=== PATIENT | female | born 1955 | race Caucasian/White ===

== ENCOUNTER → 2016-10-16 | Outpatient (CLI) | payer BC ==
--- NOTE | 2016-10-17 09:36 | MM ---
Reason for exam: screening (asymptomatic). Last mammogram was performed 1 year and 7 months ago. History: Patient is postmenopausal. Took hormonal contraceptives for 2 years. Took estrogen for 2 months. Physical Findings: A clinical breast exam by your physician is recommended on an annual basis and results should be correlated with mammographic findings. MG Screening Mammo w CAD Bilateral CC and MLO view(s) were taken. Prior study comparison: March 21, 2015, bilateral MG screening mammo w CAD. March 03, 2014, bilateral MG screening mammo w CAD. The breast tissue is heterogeneously dense. This may lower the sensitivity of mammography. Finding: There are new indeterminate microcalcifications in the upper inner quadrant of the left breast. New finding since March 21, 2015 and March 03, 2014. ASSESSMENT: Incomplete: need additional imaging evaluation, BI-RAD 0 RECOMMENDATION: Special view mammogram of the left breast. [facility] will attempt to contact patient to return for supplemental views.
== END | disposition home or self-care (01) ==
LOC: RADMAMWWP 10:59
PROVIDERS: ATTEND Family Medicine
DX: Z12.31 Encounter for screening mammogram for malignant neoplasm of breast (principal)

== ENCOUNTER → 2016-10-20 | Outpatient (CLI) | payer BC ==
--- NOTE | 2016-10-20 10:38 | MM ---
Reason for exam: additional evaluation requested from abnormal screening. Last mammogram was performed less than 1 month ago. History: Patient is postmenopausal. Took hormonal contraceptives for 2 years. Took estrogen for 2 months. Physical Findings: Nurse did not find any significant physical abnormalities on exam. MG Work Up Mamm w CAD LT LM, CC with magnification, and LM with magnification view(s) were taken of the left breast. Prior study comparison: October 16, 2016, bilateral MG screening mammo w CAD. March 21, 2015, bilateral MG screening mammo w CAD. The breast tissue is heterogeneously dense. This may lower the sensitivity of mammography. Finding: There are intermediate concern, suspicious grouped/clustered, fine calcifications in the upper inner quadrant, middle position of the left breast. New finding since October 16, 2016 and March 21, 2015. These results were verbally communicated with the patient and result sheet given to the patient on 10/20/16. ASSESSMENT: Highly suggestive of malignancy, BI-RAD 5 RECOMMENDATION: Surgical consultation and stereotactic core biopsy of the left breast. Called Dr. Farias with mammographic findings and has scheduled an appointment for the patient for 10/23/16 at 2:[address] Hill. PRELIMINARY REPORT CALLED AND FAXED TO DR. HILL ON 10/20/16 AT 300/TP.
== END | disposition home or self-care (01) ==
LOC: RADMAMWWP 09:37
PROVIDERS: ATTEND Family Medicine
DX: R92.8 Other abnormal and inconclusive findings on diagnostic imaging of breast (principal)

== ENCOUNTER → 2016-11-03 | Day surgery (SDC) | payer BC ==
[~2016-11-03] MED LIST: ALPRAZolam 0.25 MG TAB ONE; BACITRACIN OINT 1 EACH PACKET TOPICAL ONE; LIDOCAINE 1% INJ 10MG/ML (20 ML MDV) ONE; SODIUM BICARB 4% 5 ML VIAL (0.48 MEQ/ML) ONE
--- NOTE | 2016-11-03 16:00 | MM ---
EXAMINATION TYPE: MG stereo VAD BX LT DATE OF EXAM: 11/03/2016 3:06 PM COMPARISON: NONE CLINICAL HISTORY: Microcalcifications TECHNIQUE: Stereotactic guided core biopsy of left breast. FINDINGS: The procedure of stereotactic guided core biopsy was explained to the patient. Benefits, alternatives, and risks were discussed. An informed consent was then obtained. [facility]. The procedure was performed by the undersigned. A vacuum assisted biopsy gun was used to obtain multiple core samples. The patient tolerated the procedure well without any immediate complication. The patient was kept in the radiology department for short stay after the procedure and then discharged home in stable condition. Targeted calcifications are identified in specimen mammogram. Post biopsy mammogram shows the clip to appear in satisfactory position relative to the targeted area of concern on the preprocedure images. IMPRESSION: SUCCESSFUL, UNCOMPLICATED STEREOTACTIC GUIDED CORE BIOPSY OF AREA OF CONCERN IN THE left BREAST, FULL PATHOLOGY RESULTS TO FOLLOW. Pathology Results: Benign BREAST, LEFT, STEREOTACTIC CORE BIOPSY: FIBROCYSTIC CHANGE (STROMAL FIBROSIS, CYST FORMATION, APOCRINE METAPLASIA AND ADENOSIS). SCATTERED CALCIFICATIONS IDENTIFIED, PENDING DEEPER SECTIONS AND SPECIMEN RADIOGRAPH TO CONFIRM ALL AREAS OF CALCIFICATION ARE IDENTIFIED. ADDENDUM REPORT BREAST, LEFT, STEREOTACTIC CORE BIOPSY: FIBROCYSTIC CHANGE (STROMAL FIBROSIS, CYST FORMATION, APOCRINE METAPLASIA, ADENOSIS, COLUMNAR CELL CHANGE AND DUCT HYPERPLASIA). CALCIFICATIONS IDENTIFIED. Recommendation Follow up mammogram of the left breast in 6 months. MTDD
== END ==
LOC: RADMAMWWP 13:17
PROVIDERS: ATTEND Surgery
DX: N60.12 Diffuse cystic mastopathy of left breast (principal); N60.82 Other benign mammary dysplasias of left breast; N60.22 Fibroadenosis of left breast; R92.1 Mammographic calcification found on diagnostic imaging of breast; R92.8 Other abnormal and inconclusive findings on diagnostic imaging of breast; R92.0 Mammographic microcalcification found on diagnostic imaging of breast
CPT/HCPCS: 88305; 19081; A4648; J2001

== ENCOUNTER 2018-05-06 14:02 | Inpatient (IN) | payer BC, OTHER ==
[2018-05-06 14:52] LABS: Basophils # (A) 0.1 k/uL (0-0.2); Basophils % (A) 1 %; Eosinophils # (A) 0.2 k/uL (0-0.7); Eosinophils % (A) 2 %; HCT 40.9 % (34.0-46.0); HGB 13.9 gm/dL (11.4-16.0); Lymphocytes # (A) 1.8 k/uL (1.0-4.8); Lymphocytes % (A) 18 %; MCV 85.3 fL (80.0-100.0); Monocytes # (A) 0.6 k/uL (0-1.0); Monocytes % (A) 6 %; Neutrophils % (A) 71 %; Platelet Count 292 k/uL (150-450); RDW 13.1 % (11.5-15.5); WBC 9.9 k/uL (3.8-10.6)
--- NOTE | 2018-05-06 14:56 | XR ---
EXAMINATION TYPE: XR chest 2V DATE OF EXAM: 05/06/2018 COMPARISON: 04/10/2015 HISTORY: Chest pain TECHNIQUE: Frontal and lateral views of the chest are obtained. FINDINGS: There is no focal air space opacity, pleural effusion, or pneumothorax seen. Minimal horiz ontally oriented platelike left basilar subsegmental atelectasis is noted. The cardiac silhouette siz e is within normal limits. The osseous structures are intact. Cholecystectomy clips are noted withi n the right upper quadrant. IMPRESSION: Minimal left basilar platelike subsegmental atelectasis. Otherwise no acute cardiopulmon teo process.
[2018-05-06 15:04] LABS: Calcium 9.6 mg/dL (8.4-10.2); Magnesium 2.1 mg/dL (1.6-2.3); Total Bilirubin 0.6 mg/dL (0.2-1.3); Total Protein 6.8 g/dL (6.3-8.2)
[2018-05-06 15:09] LABS: Creatine Kinase 35 U/L (30-135)
[2018-05-06 15:20] LABS: Partial Thromboplastin Time 24.9 sec (22.0-30.0); Prothrombin Time 10.2 sec (9.0-12.0)
[2018-05-06 15:22] LABS: Creatine Kinase MB 0.3 ng/mL (0.0-2.4); Troponin I <0.012 ng/mL (0.000-0.034)
[2018-05-06] MEDS ORDERED: ASPIRIN 81 MG PO STA (15:27)
[2018-05-06] MEDS ORDERED: NITROGLYCERIN SL TABS 0.4 MG TAB SUBLINGUAL STA (15:28)
--- NOTE | 2018-05-06 15:30 | ED ---
Chest Pain HPI - General Chief Complaint: Chest Pain Stated Complaint: Chest Pain Time Seen by Provider: 05/06/18 14:16 Source: patient, RN notes reviewed Mode of arrival: ambulatory Limitations: no limitations - History of Present Illness Initial Comments: This is a 8-year-old female with no prior history of heart disease states she had the onset about 2 AM of severe 8 and 9/10 retrosternal chest pain went to her back to her left shoulder. She states it was associated with shortness of breath at about 15 minutes 81 mg of aspirin some Aleve she has some relief after 45 minutes to see and resolve she also had associated frontal headache he had nausea with it. She states she has some soreness now 3/10 over her chest in the same area no cough no phlegm production no other symptoms at this time. Is a family history of heart disease no personal history. MD Complaint: chest pain - Related Data Home Medications Medication Instructions Recorded Confirmed Aspirin EC [Ecotrin Low Dose] 81 mg PO DAILY PRN 05/06/18 05/06/18 Gabapentin [Neurontin] 300 mg PO HS 05/06/18 05/06/18 Naproxen Sodium [Aleve] 220 mg PO DAILY PRN 05/06/18 05/06/18 Venlafaxine HCl [Effexor XR] 75 mg PO HS 05/06/18 05/06/18 Allergies Allergy/AdvReac Type Severity Reaction Status Date / Time Xnwjtfe-Cjq-Uqk Reductase Allergy Swelling Verified 05/06/18 14:25 Inhibitor Review of Systems ROS Statement: Those systems with pertinent positive or pertinent negative responses have been documented in the HPI. ROS Other: All systems not noted in ROS Statement are negative. EKG Findings - EKG Results: EKG: interpreted by MATTHEW, sinus rhythm (Sinus tachycardia rate of 101. Interval 150 QRS duration 80 QT since QTC 340/440 early repolarization no definite acute ST-T wave changes) Past Medical History Past Medical History: No Reported History History of Any Multi-Drug Resistant Organisms: None Reported Past Surgical History: Appendectomy, Cholecystectomy, Tubal Ligation Past Psychological History: No Psychological Hx Reported Smoking Status: Never smoker Past Alcohol Use History: None Reported Past Drug Use History: None Reported General Exam - General Exam Comments Initial Comments: This is a well-developed well-nourished awake alert oriented 3 female Limitations: no limitations General appearance: alert, in no apparent distress Head exam: Present: atraumatic, normocephalic, normal inspection Eye exam: Present: normal appearance, PERRL, EOMI. Absent: scleral icterus, conjunctival injection, periorbital swelling ENT exam: Present: normal exam, mucous membranes moist Neck exam: Present: normal inspection. Absent: tenderness, meningismus, lymphadenopathy Respiratory exam: Present: normal lung sounds bilaterally, chest wall tenderness (Mild times palpation of the anterior chest wall this does not seem to reproduce the patient's pain). Absent: respiratory distress, wheezes, rales , rhonchi, stridor Cardiovascular Exam: Present: regular rate, normal rhythm, normal heart sounds. Absent: systolic murmur, diastolic murmur, rubs, gallop, clicks GI/Abdominal exam: Present: soft, normal bowel sounds. Absent: distended, tenderness, guarding, rebound, rigid Extremities exam: Present: normal inspection, full ROM, normal capillary refill. Absent: tenderness, pedal edema, joint swelling, calf tenderness Back exam: Present: normal inspection Neurological exam: Present: alert, oriented X3, CN II-XII intact Psychiatric exam: Present: normal affect, normal mood Skin exam: Present: warm, dry, intact, normal color. Absent: rash Course Vital Signs 05/06/18 05/06/18 05/06/18 14:05 14:19 15:36 Temperature 98.0 F Pulse Rate 112 H 104 H Pulse Rate [ 99 Bilateral Sitting Radial] Respiratory 16 18 18 Rate Blood Pressure 103/61 122/60 O2 Sat by Pulse 97 99 Oximetry 05/06/18 16:15 Temperature Pulse Rate 101 H Pulse Rate [ Bilateral Sitting Radial] Respiratory 18 Rate Blood Pressure 110/69 O2 Sat by Pulse 97 Oximetry Chest Pain MDM - MDM MG reveals no acute findings I did discuss findings with the patient is unclear whether the nitroglycerin helped her pain she has has some reproducible pain but is different than what she experienced last evening. Patient will be admitted for evaluation by radiology. Disposition Clinical Impression: Chest pain, Unstable angina pectoris, Chest wall syndrome Disposition: ADMITTED IP TO THIS [facility] Condition: Stable Referrals: Celena Poole DO [Primary Care Provider] - 1-2 days
[2018-05-06] MEDS ORDERED: NITROGLYCERIN SL TABS 0.4 MG TAB SUBLINGUAL PRN (16:48)
[2018-05-06] MEDS ORDERED: HEPARIN SODIUM,PORCINE 5,000 UNIT/ML 1 ML VIAL IV ONE (16:48)
[2018-05-06] MEDS ORDERED: NAPROXEN 250 MG TAB PO PRN (16:51)
[2018-05-06] MEDS ORDERED: HEPARIN SOD,PORK IN 0.45% NACL 25,000 UNIT in 0.45% NACL 1 500ML.BAG IV SCH (17:00)
[2018-05-06] MEDS ORDERED: SODIUM CHLORIDE 0.9% 500 ML IV STA (17:27)
--- NOTE | 2018-05-06 17:34 | P.HPIM ---
History of Present Illness H&P Date: 05/06/18 Chief Complaint: chest pain Patient is a 62-year-old female with history of hot flashes due to menopausal type symptoms and vitamin D deficiency presented to the hospital with complaints of chest pain. In the ER she underwent an extensive evaluation. She was found to be tachycardic on arrival with a pulse of 112. Her vital signs were otherwise within normal limits. Initial laboratory analysis showed a normal troponin slightly elevated glucose of 131. EKG showed diffuse J-point elevation with worsening slow and mild ST segment depression. She is given a dose of nitro in the ER which relieved her chest pain. Patient seen and examined at bedside. She states that she woke up at 2 AM and was having severe retrosternal chest pain that radiated to her back and up into her neck. This is associated with shortness of breath. She also had palpitations. She denies any nausea, vomiting, diaphoresis, numbness or tingling, lightheadedness/dizziness, or syncopal episode. She took her blood pressure and it was 116/80 and her heart rate was 124. She took an aspirin and Aleve at approximately 45 minutes later was able to follow sleep. When she woke up this morning for work she felt sore across her chest back and underneath her rib cage. She said it felt like she had surgery. Then at approximately 10 AM she started having a migraine headache. She notes that her chest pain has been more mild today and all across her her chest rib cage and back. It is worse with deep inspiration. She currently does not have any nausea shortness of breath, numbness, tingling, or lightheadedness. Her chest pain is now very mild after the nitro which seemed to help. She denies any recent cough, cold, fever, flu, nausea, vomiting, diarrhea, or dysuria. She has not had any of these symptoms previously. She denies any recent sick contacts. She states that her cousin young of a heart attack and multiple uncles late in life due to myocardial infarction. She recently started gabapentin approximately one month ago for "hot flashes". Review of Systems Pertinent positives and negatives as discussed in HPI, a complete review of systems was performed and all other systems are negative. Past Medical History Additional Past Medical History / Comment(s): Hot flashes, Vitamin D deficiency History of Any Multi-Drug Resistant Organisms: None Reported Past Surgical History: Appendectomy, Cholecystectomy, Tubal Ligation Past Psychological History: No Psychological Hx Reported Smoking Status: Never smoker Past Alcohol Use History: None Reported Past Drug Use History: None Reported Additional History: Lives with , work as an university administrator - Past Family History cousin Additional Family Medical History / Comment(s): ID Medications and Allergies Home Medications Medication Instructions Recorded Confirmed Type Aspirin EC [Ecotrin Low Dose] 81 mg PO DAILY PRN 05/06/18 05/06/18 History Gabapentin [Neurontin] 300 mg PO HS 05/06/18 05/06/18 History Naproxen Sodium [Aleve] 220 mg PO DAILY PRN 05/06/18 05/06/18 History Venlafaxine HCl [Effexor XR] 75 mg PO HS 05/06/18 05/06/18 History Allergies Allergy/AdvReac Type Severity Reaction Status Date / Time Iyburzv-Dik-Pfy Reductase Allergy Swelling Verified 05/06/18 14:25 Inhibitor Physical Exam Osteopathic Statement: *. No significant issues noted on an osteopathic structural exam other than those noted in the History and Physical/Consult. Vitals: Vital Signs Temp Pulse Pulse Resp BP Pulse Ox 05/06/18 16:15 101 H 18 110/69 97 05/06/18 15:36 104 H 18 122/60 99 05/06/18 14:19 99 18 05/06/18 14:05 98.0 F 112 H 16 103/61 97 Intake and Output 05/06/18 05/06/18 05/06/18 06:59 14:59 22:59 Other: Weight 81.647 kg General: non toxic, no distress, appears at stated age, normal weight Derm: no unusual rashes/lesions no unusual ecchymoses, warm, dry Head: atraumatic, normocephalic, symmetric Eyes: EOMI, no lid lag, anicteric sclera, pupils equal round reactive to light ENT: Nose and ears atraumatic, no thrush, no pharyngeal erythema Neck: No thyromegaly, no cervical lymphadenopathy, trachea midline, supple Mouth: no lip lesion, mucus membranes moist Cardiovascular: S1S2 reg, no murmur, positive posterior tibial pulse bilateral, no edema, capillary refill less than 2 seconds, + pain to palpation of chest wall Lungs: CTA bilateral, no rhonchi, no rales , no accessory muscle use Abdominal: soft, nontender to palpation, no guarding, no appreciable organomegaly, normal bowel sounds Ext: no gross muscle atrophy, muscle strength 5 out of 5 in all 4 extremities grossly, no contractures, Neuro: CN II-XI grossly intact, light touch intact all 4 extremities, finger to nose within normal limits, Psych: Alert, oriented, appropriate affect Results CBC & Chem 7: 05/06/18 14:36 05/06/18 14:36 Labs: Abnormal Lab Results - Last 24 Hours (Table) 05/06/18 Range/Units 14:36 BUN 18 H (7-17) mg/dL Glucose 131 H (74-99) mg/dL Comments: EKG is reviewed by myself revealed sinus tachycardia at a rate of 101, normal access, normal intervals with a AZ of 5150, QRS 80, and AZ interval 440. She does have some J-point elevation in leads 2, 3, aVF, V5 and V6. She also has some AZ depression. Chest x-ray: report reviewed, image reviewed (Platelet atelectasis left base) Thrombosis Risk Factor Assmnt - DVT/VTE Prophylaxis DVT/VTE Prophylaxis: Low risk, early ambulation encouraged - Choose All That Apply Each Factor Represents 1 point: Age 41-60 years Thrombosis Risk Factor Assessment Total Risk Factor Score: 1 Thrombosis Risk Factor Assessment Level: Low Risk Assessment and Plan Assessment: Chest pain -Concern for possible pericarditis versus acute coronary syndrome versus pulmonary embolism -Serial troponin, aspirin -Telemetry -Echocardiogram in a.m. -Consult cardiology -Check d-dimer -When necessary nitro, [place] VItamine D Def - continue home replacement The patient is placed in observation with an anticipated less than 2 per night stay for evaluation of Observation Surrogate decision-maker: - Kenyon CODE STATUS:Full DVT prophylaxis: Early ambulation Anticipated discharge date: [address]: Home
[2018-05-06] MEDS ORDERED: HEPARIN SODIUM,PORCINE 5,000 UNIT/ML 1 ML VIAL IV PRN (19:25)
[2018-05-06] MEDS: NITROGLYCERIN OINT 1 INCH/GM PACKET TOPICAL SCH ×2 (19:51→23:01)
[2018-05-06] MEDS: GABAPENTIN 300 MG CAP PO SCH (19:53)
[2018-05-06] MEDS: VENLAFAXINE HCL ER 75 MG CAP PO SCH (19:53)
[2018-05-06 22:20] LABS: Creatine Kinase 30 U/L (30-135)
[2018-05-06 22:32] LABS: Creatine Kinase MB <0.2 ng/mL (0.0-2.4); Troponin I <0.012 ng/mL (0.000-0.034)
[2018-05-07 02:10] LABS: Hemoglobin A1C 5.3 % (4.0-6.0)
[2018-05-07] MEDS: NITROGLYCERIN OINT 1 INCH/GM PACKET TOPICAL SCH ×3 (03:47→19:25)
[2018-05-07 05:04] LABS: Creatine Kinase 28 U/L (30-135)
[2018-05-07 05:08] LABS: Cholesterol 181 mg/dL (<200); HDL Cholesterol 57 mg/dL (40-60); LDL Cholesterol,Calculated 107 mg/dL (0-99); Triglycerides 83 mg/dL (<150)
[2018-05-07 05:16] LABS: Creatine Kinase MB 0.2 ng/mL (0.0-2.4); Troponin I <0.012 ng/mL (0.000-0.034)
--- NOTE | 2018-05-07 07:36 | P.CRDCN ---
History of Present Illness Consult date: 05/07/18 Consult reason: chest pain Chief complaint: Chest pain History of present illness: This is a pleasant 62-year-old female patient with no significant past medical history of coronary artery disease or congestive heart failure or diabetes or hypertension or dyslipidemia who presented to the emergency room complaining of chest discomfort. The patient was in her usual state of health until early this morning when she woke up from sleep at 2:00 in the morning complaining of chest discomfort. She described her discomfort as a sharp kind of discomfort in the mid of the chest and the patient states clearly that it's worse when she takes a deep breath. The chest discomfort wasn't associated with shortness of breath. No sweating. No dizziness or lightheadedness. No nausea or vomiting. And no syncope. When she presented to the emergency room she was slightly tachycardic and the patient continues to be tachycardic with heart rate in the 80s at this point. 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 Currently she is chest pain-free. The EKG showed sinus rhythm with diffuse J-point elevation except for ST segment depression in aVR. I do feel that the EKG is consistent with pericarditis and the clinical scenario and characteristic of the chest discomfort seems to be consistent with pericarditis as well. I could not hear any pericardial rub. The patient is not aware of any history of upper respiratory infection recently and also she denies having any fever or chills or cough as well. The chest x-ray did not show any acute abnormalities. The patient underwent 3 sets of cardiac enzymes came in to be unremarkable. The CBC and BNP came in to be also within normal limits. Past Medical History Past Medical History: Cancer Additional Past Medical History / Comment(s): Hot flashes, Vitamin D deficiency "pre cancerous cells/cervix pt stated they burned them out, skin cancer(removed) History of Any Multi-Drug Resistant Organisms: None Reported Past Surgical History: Appendectomy, Cholecystectomy, Tubal Ligation Additional Past Surgical History / Comment(s): "pre cancerous cells in cervix- pt stated they burned them out" Past Anesthesia/Blood Transfusion Reactions: Motion Sickness, Postoperative Nausea & Vomiting (PONV) Smoking Status: Never smoker - Past Family History Mother Family Medical History: Diabetes Mellitus Additional Family Medical History / Comment(s): obesity, depression Father History Unknown: Yes Additional Family Medical History / Comment(s): "i did'nt know my dad" cousin Additional Family Medical History / Comment(s): MD Medications and Allergies Home Medications Medication Instructions Recorded Confirmed Type Aspirin EC [Ecotrin Low Dose] 81 mg PO DAILY PRN 05/06/18 05/06/18 History Gabapentin [Neurontin] 300 mg PO HS 05/06/18 05/06/18 History Naproxen Sodium [Aleve] 220 mg PO DAILY PRN 05/06/18 05/06/18 History Venlafaxine HCl [Effexor XR] 75 mg PO HS 05/06/18 05/06/18 History Allergies Allergy/AdvReac Type Severity Reaction Status Date / Time Npvwxcu-Ame-Ikx Reductase Allergy Swelling Verified 05/06/18 14:25 Inhibitor Physical Exam Vitals: Vital Signs Temp Pulse Pulse Pulse Resp BP BP 05/07/18 03:45 18 05/07/18 03:44 97.6 F 84 18 117/73 05/06/18 23:32 18 05/06/18 23:31 98.2 F 94 18 104/65 05/06/18 19:34 16 05/06/18 18:43 05/06/18 18:30 98.8 F 107 H 16 122/76 05/06/18 17:47 98.0 F 100 18 115/60 05/06/18 16:15 101 H 18 110/69 05/06/18 15:36 104 H 18 122/60 05/06/18 14:19 99 18 05/06/18 14:05 98.0 F 112 H 16 103/61 Pulse Ox 05/07/18 03:45 05/07/18 03:44 98 05/06/18 23:32 05/06/18 23:31 94 L 05/06/18 19:34 05/06/18 18:43 98 05/06/18 18:30 96 05/06/18 17:47 98 05/06/18 16:15 97 05/06/18 15:36 99 05/06/18 14:19 05/06/18 14:05 97 Intake and Output 05/06/18 05/07/18 05/07/18 22:59 06:59 14:59 Intake Total 301.868 280 Balance 301.868 280 Intake: IV 280 Heparin Sod,Pork in 0.45% 140 NaCl 25,000 unit In 0.45 % NaCl 1 500ml.bag @ 12 UNITS/KG/HR 19.59 mls/hr IV .Q24H DAREN Rx#: [id number] Sodium Chloride 0.9% 500 140 ml @ 20 mls/hr IV .Q24H STA Rx#:[id number] Intake, IV Titration 101.868 Amount Heparin Sod,Pork in 0.45% 101.868 NaCl 25,000 unit In 0.45 % NaCl 1 500ml.bag @ 12 UNITS/KG/HR 19.59 mls/hr IV .Q24H DAREN Rx#: [id number] Oral 200 Other: Voiding Method Toilet Toilet # Voids 1 2 Weight 81.3 kg - Constitutional General appearance: no acute distress - Respiratory Respiratory: bilateral: CTA - Cardiovascular Rhythm: regular Heart sounds: normal: S1, S2 Results 05/06/18 14:36 05/06/18 14:36 Cardiac Enzymes 05/06/18 05/06/18 05/06/18 Range/Units 14:36 14:36 21:47 AST 31 (14-36) U/L CK-MB (CK-2) 0.3 <0.2 (0.0-2.4) ng/mL Troponin I <0.012 <0.012 (0.000-0.034) ng/mL 05/07/18 Range/Units 04:05 AST (14-36) U/L CK-MB (CK-2) 0.2 (0.0-2.4) ng/mL Troponin I <0.012 (0.000-0.034) ng/mL Coagulation 05/06/18 05/06/18 05/07/18 Range/Units 14:36 21:47 04:05 PT 10.2 (9.0-12.0) sec APTT 24.9 46.0 H 58.0 H (22.0-30.0) sec Lipids 05/07/18 Range/Units 04:05 Triglycerides 83 (<150) mg/dL Cholesterol 181 (<200) mg/dL HDL Cholesterol 57 (40-60) mg/dL CBC 05/06/18 Range/Units 14:36 WBC 9.9 (3.8-10.6) k/uL RBC 4.80 (3.80-5.40) m/uL Hgb 13.9 (11.4-16.0) gm/dL Hct 40.9 (34.0-46.0) % Plt Count 292 (150-450) k/uL Comprehensive Metabolic Panel 05/06/18 Range/Units 14:36 Sodium 140 (137-145) mmol/L Potassium 4.0 (3.5-5.1) mmol/L Chloride 105 (98-107) mmol/L Carbon Dioxide 28 (22-30) mmol/L BUN 18 H (7-17) mg/dL Creatinine 0.84 (0.52-1.04) mg/dL Glucose 131 H (74-99) mg/dL Calcium 9.6 (8.4-10.2) mg/dL AST 31 (14-36) U/L ALT 45 (9-52) U/L Alkaline Phosphatase 63 (38-126) U/L Total Protein 6.8 (6.3-8.2) g/dL Albumin 4.0 (3.5-5.0) g/dL Current Medications Generic Name Dose Route Start Last Admin Trade Name Freq PRN Reason Stop Dose Admin Aspirin 325 mg 05/07/18 09:00 Aspirin PO DAILY DAREN Gabapentin 300 mg 05/06/18 21:00 05/06/18 19:53 Neurontin PO 300 mg HS DAREN Administration Heparin Sodium (Porcine) 0 unit 05/06/18 19:25 05/06/18 22:48 Heparin IV 2,025 unit PER PROTOCOL PRN Administration Low PTT Protocol Heparin Sodium/Sodium Chloride 500 mls @ 19.59 mls/hr 05/06/18 17:00 22:47 25,000 unit/ Sodium Chloride IV 14 units/kg/hr .Q24H DAREN 22.86 mls/hr Titration Protocol 12 UNITS/KG/HR Sodium Chloride 500 mls @ 20 mls/hr 05/06/18 17:27 05/06/18 17:33 Saline 0.9% IV 05/07/18 17:26 20 mls/hr .Q24H STA Administration Naproxen 250 mg 05/06/18 16:51 05/06/18 18:54 Naprosyn PO 250 mg DAILY PRN Administration Mild Pain Nitroglycerin 1 inch 05/06/18 18:00 05/07/18 03:47 Nitro-Bid Oint TOPICAL Not Given Q6HR DAREN Nitroglycerin 0.4 mg 05/06/18 16:48 Nitrostat SUBLINGUAL Q5M PRN Chest Pain Venlafaxine HCl 75 mg 05/06/18 21:00 05/06/18 19:53 Effexor Xr PO 75 mg HS DAREN Administration Intake and Output 05/06/18 05/07/18 05/07/18 22:59 06:59 14:59 Intake Total 301.868 280 Balance 301.868 280 Intake: IV 280 Heparin Sod,Pork in 0.45% 140 NaCl 25,000 unit In 0.45 % NaCl 1 500ml.bag @ 12 UNITS/KG/HR 19.59 mls/hr IV .Q24H DAREN Rx#: [id number] Sodium Chloride 0.9% 500 140 ml @ 20 mls/hr IV .Q24H STA Rx#:[id number] Intake, IV Titration 101.868 Amount Heparin Sod,Pork in 0.45% 101.868 NaCl 25,000 unit In 0.45 % NaCl 1 500ml.bag @ 12 UNITS/KG/HR 19.59 mls/hr IV .Q24H DAREN Rx#: [id number] Oral 200 Other: Voiding Method Toilet Toilet # Voids 1 2 Weight 81.3 kg 05/06/18 14:36 05/06/18 14:36 Assessment and Plan Assessment: Assessment #1 atypical/pleuritic chest discomfort. Currently the patient is chest pain- free Plan #1 the clinical picture is likely to be consistent with acute pericarditis #2 the patient was ruled out for acute coronary event #3 I will follow-up on the echocardiogram to assess for any pericardial effusion #4 obtain a sed rate for better clarification #5 DC the heparin at this point #6 I will start the patient also on colchicine #7 she is already taking nonsteroid anti-inflammatory at home #8 follow-up with the patient and I did recommend keeping the patient for another 24 hours. Thank you for allowing us participate in her care and we'll continue following up with the patient
[2018-05-07] MEDS: COLCHICINE 0.6 MG EACH PO SCH ×2 (08:57→19:41)
--- NOTE | 2018-05-07 10:42 | ECHOF ---
Referral Reason:chest pain MEASUREMENTS -------- HEIGHT: 165.1 cm WEIGHT: 81.2 kg BP: 117/73 RVIDd: 2.9 cm (< 3.3) IVSd: 1.2 cm (0.6 - 1.1) LVIDd: 4.4 cm (3.9 - 5.3) LVPWd: 1.1 cm (0.6 - 1.1) IVSs: 1.8 cm LVIDs: 2.3 cm LVPWs: 2.0 cm LAESV Index (A-L): 21.36 ml/m Ao Diam: 2.7 cm (2.0 - 3.7) AV Cusp: 1.4 cm (1.5 - 2.6) LA Diam: 3.2 cm (2.7 - 3.8) MV EXCURSION: 13.536 mm (> 18.000) MV EF SLOPE: 93 mm/s (70 - 150) EPSS: 0.9 cm MV E Solo: 0.92 m/s MV DecT: 156 ms MV A Solo: 0.87 m/s MV E/A Ratio: 1.05 RAP: 5.00 mmHg RVSP: 9.94 mmHg FINDINGS -------- Sinus rhythm. This was a technically good study. The left ventricular size is normal. There is mild concentric left ventricular hypertrophy. Overa ll left ventricular systolic function is normal with, an EF between 55 - 60 %. The right ventricle is normal in size and function. The left atrial size is normal. The right atrium is normal in size. The aortic valve is trileaflet, and appears structurally normal. No aortic stenosis or regurgitation. There is trace mitral regurgitation. Trace tricuspid regurgitation present. The right ventricular systolic pressure, as measured by Dopp ler, is 9.94mmHg. Pulmonic valve appears structurally normal. The aortic root size is normal. Normal inferior vena cava with normal inspiratory collapse consistent with estimated right atrial pre ssure of 5 mmHg. The pericardium is normal. CONCLUSIONS -------- 1. Sinus rhythm. 2. This was a technically good study. 3. The left ventricular size is normal. 4. There is mild concentric left ventricular hypertrophy. 5. Overall left ventricular systolic function is normal with, an EF between 55 - 60 %. 6. The right ventricle is normal in size and function. 7. The left atrial size is normal. 8. The right atrium is normal in size. 9. The aortic valve is trileaflet, and appears structurally normal. No aortic stenosis or regurgitati on. 10. There is trace mitral regurgitation. 11. Trace tricuspid regurgitation present. 12. The right ventricular systolic pressure, as measured by Doppler, is 9.94mmHg. 13. Pulmonic valve appears structurally normal. 14. The aortic root size is normal. 15. Normal inferior vena cava with normal inspiratory collapse consistent with estimated right atrial pressure of 5 mmHg. 16. The pericardium is normal. SUSTAINABLE COMMUNITIES DESIGNER: Lindsey Ordaz RDCS
[2018-05-07] MEDS: ASPIRIN 325 MG TAB PO SCH (12:24)
[2018-05-07] MEDS: VENLAFAXINE HCL ER 75 MG CAP PO SCH (19:41)
[2018-05-07] MEDS: GABAPENTIN 300 MG CAP PO SCH (19:41)
--- NOTE | 2018-05-07 20:37 | P.PN ---
Subjective Progress Note Date: 05/07/18 (Delayed charting seen at 1000) Principal diagnosis: chest pain Patient is a 62-year-old female with history of hot flashes due to menopausal type symptoms and vitamin D deficiency presented to the hospital with complaints of chest pain. In the ER she underwent an extensive evaluation. She was found to be tachycardic on arrival with a pulse of 112. Her vital signs were otherwise within normal limits. Initial laboratory analysis showed a normal troponin slightly elevated glucose of 131. EKG showed diffuse J-point elevation with worsening slow and mild ST segment depression. She is given a dose of nitro in the ER which relieved her chest pain. She was admitted for observation. Her troponins remained negative and EKG was unchanged. She was seen by cardiology culture likely had acute pericarditis. She was started on colchicine in the recommended monitoring for an additional 24 hours. Patient seen and examined at bedside. She has no complaints currently. She still having some chest soreness is much better than yesterday. No shortness of breath. No nausea. No vomiting. Objective - Vital Signs Vital signs: Vital Signs Temp 98.2 F 05/07/18 20:00 Pulse 89 05/07/18 20:00 Resp 16 05/07/18 20:00 BP 122/68 05/07/18 20:00 Pulse Ox 98 05/07/18 20:00 Intake & Output 05/07/18 05/07/18 05/08/18 06:59 18:59 06:59 Intake Total 381.868 318 Balance 381.868 318 Intake: IV 280 Heparin Sod,Pork in 0.45% 140 NaCl 25,000 unit In 0.45 % NaCl 1 500ml.bag @ 12 UNITS/KG/HR 19.59 mls/hr IV .Q24H DAREN Rx#: [id number] Sodium Chloride 0.9% 500 140 ml @ 20 mls/hr IV .Q24H STA Rx#:[id number] Intake, IV Titration 101.868 Amount Heparin Sod,Pork in 0.45% 101.868 NaCl 25,000 unit In 0.45 % NaCl 1 500ml.bag @ 12 UNITS/KG/HR 19.59 mls/hr IV .Q24H DAREN Rx#: [id number] Oral 318 Other: Voiding Method Toilet Toilet # Voids 2 1 - Exam General: non toxic, no distress, appears at stated age Derm: warm, dry Head: atraumatic, normocephalic, symmetric Eyes: EOMI, no lid lag, anicteric sclera Mouth: no lip lesion, mucus membranes moist Cardiovascular: S1S2 reg, no murmur, positive posterior tibial pulse bilateral, + pain over palpation of chest wall Lungs: CTA bilateral, no rhonchi, no rales , no accessory muscle use Abdominal: soft, nontender to palpation, no guarding, no appreciable organomegaly Ext: no gross muscle atrophy, no edema, no contractures Neuro: CN II-XI grossly intact, no focal neuro deficits Psych: Alert, oriented, appropriate affect - Labs CBC & Chem 7: 05/06/18 14:36 05/06/18 14:36 Labs: Abnormal Lab Results - Last 24 Hours (Table) 05/06/18 05/07/18 05/07/18 Range/Units 21:47 04:05 04:05 ESR (0-20) mm/hr APTT 46.0 H (22.0-30.0) sec Total Creatine Kinase 28 L (30-135) U/L LDL Cholesterol, Calc 107 H (0-99) mg/dL 05/07/18 05/07/18 Range/Units 04:05 04:05 ESR 36 H (0-20) mm/hr APTT 58.0 H (22.0-30.0) sec Total Creatine Kinase (30-135) U/L LDL Cholesterol, Calc (0-99) mg/dL Assessment and Plan Assessment: Acute pericarditis -Concern for possible pericarditis versus acute coronary syndrome versus pulmonary embolism -Serial troponins negative -Telemetry -Echocardiogram unremarkable -Cardiology recommendations appreciated: Cultures seen - ESR slightly elevated Vitamin D Def - continue home replacement The patient is placed in observation with an anticipated less than 2 per night stay for evaluation of Observation Surrogate decision-maker: - Kenyon CODE STATUS:Full DVT prophylaxis: Early ambulation Anticipated discharge date: [address]: Home
[2018-05-08 08:34] VITALS: RESP 16
[2018-05-08] MEDS: COLCHICINE 0.6 MG EACH PO SCH (08:43)
[2018-05-08] MEDS: ASPIRIN 325 MG TAB PO SCH (08:43)
--- NOTE | 2018-05-08 11:26 | P.DS ---
Providers Date of admission: 05/08/18 10:13 Expected date of discharge: 05/08/18 Attending physician: Fabián Ye MD Consults: 05/06/18 16:48 Consult Physician Urgent Consulting Provider: Carl Price Consult Reason/Comments: Chest pain Do you want consulting provider notified?: Yes Primary care physician: Celena Poole Hospital Course: Discharge Diagnosis: Acute pericarditis Vitamin D deficiency Hospital Course: Patient is a 62-year-old female with history of hot flashes due to menopausal type symptoms and vitamin D deficiency presented to the hospital with complaints of chest pain. In the ER she underwent an extensive evaluation. She was found to be tachycardic on arrival with a pulse of 112. Her vital signs were otherwise within normal limits. Initial laboratory analysis showed a normal troponin slightly elevated glucose of 131. EKG showed diffuse J-point elevation with worsening slow and mild ST segment depression. She is given a dose of nitro in the ER which relieved her chest pain. She was admitted for observation. Her troponins remained negative and EKG was unchanged. She was seen by cardiology culture likely had acute pericarditis. She was started on colchicine in the recommended monitoring for an additional 24 hours. She was up and ambulating in the hallways. On the morning of 05/08 her chest pain was most likely resolved. She is only having chest pain with deep inspiration. No shortness of breath. She is determined stable for discharge home. She'll complete a course of Colchicine and ibuprofen. She will also be placed on a PPI while receiving NSAID therapy. She'll follow up with Dr. Trevizo in 2-[address] Poole her primary care physician in one week. Patient seen and examined at bedside. Only having chest pain with deep inspiration. Pain is the side of the left chest. No shortness of breath. No chest pain at rest. No nausea or vomiting. Vital signs reviewed and stable. General: non toxic, no distress, appears at stated age Derm: warm, dry Head: atraumatic, normocephalic, symmetric Eyes: EOMI, no lid lag, anicteric sclera Mouth: no lip lesion, mucus membranes moist Cardiovascular: S1S2 reg, no murmur, positive posterior tibial pulse bilateral, + pain to palpation of her left chest wall Lungs: CTA bilateral, no rhonchi, no rales , no accessory muscle use Abdominal: soft, nontender to palpation, no guarding, no appreciable organomegaly Ext: no gross muscle atrophy, no edema, no contractures Neuro: CN II-XI grossly intact, no focal neuro deficits Psych: Alert, oriented, appropriate affect A total of 20 minutes of time were spent preparing this complex discharge summary . Pertinent Studies: Echocardiogram-ejection fraction 55-60%, no pericardial effusion, pericardium appeared normal Patient Condition at Discharge: Stable Plan - Discharge Summary Discharge Rx Participant: Yes New Discharge Prescriptions: New Colchicine [Colcrys] 0.6 mg PO BID #60 each Ibuprofen 600 mg PO TID #90 tablet Pantoprazole [Protonix] 40 mg PO DAILY #30 tablet. Continue Venlafaxine HCl [Effexor XR] 75 mg PO HS Gabapentin [Neurontin] 300 mg PO HS Discontinued Naproxen Sodium [Aleve] 220 mg PO DAILY PRN PRN Reason: Pain Aspirin EC [Ecotrin Low Dose] 81 mg PO DAILY PRN PRN Reason: Pain Discharge Medication List Gabapentin [Neurontin] 300 mg PO HS 05/06/18 [History] Venlafaxine HCl [Effexor XR] 75 mg PO HS 05/06/18 [History] Colchicine [Colcrys] 0.6 mg PO BID #60 each 05/08/18 [Rx] Ibuprofen 600 mg PO TID #90 tablet 05/08/18 [Rx] Pantoprazole [Protonix] 40 mg PO DAILY #30 tablet. 05/08/18 [Rx] Follow up Appointment(s)/Referral(s): Eduardo Trevizo MD [STAFF PHYSICIAN] - 1 Week Celena Poole DO [Primary Care Provider] - 2 Weeks Activity/Diet/Wound Care/Special Instructions: heart healthy diet activity as tolerated Typical duration of ibuprofen is 1-2 weeks depending clinical course. Discharge Disposition: HOME SELF-CARE
--- NOTE | 2018-05-08 12:31 | PN ---
PROGRESS NOTE This patient was admitted with symptoms of pleuritic chest pain. EKG is suggestive of acute viral pericarditis. Patient has been treated with colchicine and ibuprofen. Patient's Sed rate was elevated. Patient is feeling well. She is not having any chest discomfort. First and second heart sounds are normal. Lungs are clear to auscultation and percussion. Patient can be discharged home on ibuprofen and colchicine and she is advised to follow up with Dr. Trevizo. TANI / KELLY: [id number] /
[2018-05-08 13:06] VITALS: BP 128/78; PULSE 88; TEMP 98
== END 2018-05-08 13:09 | disposition home or self-care (01) | DRG 316 ==
LOC: EC 14:02 → 3OBS 16:48 → OBSVTOIN 05-08 10:13
PROVIDERS: ADMIT Hospitalist; ATTEND Hospitalist
DX: I30.9 Acute pericarditis, unspecified (principal); E55.9 Vitamin D deficiency, unspecified; N95.1 Menopausal and female climacteric states; G43.909 Migraine, unspecified, not intractable, without status migrainosus; Z79.1 Long term (current) use of non-steroidal anti-inflammatories (NSAID); Z79.82 Long term (current) use of aspirin; Z79.899 Other long term (current) drug therapy; Z90.49 Acquired absence of other specified parts of digestive tract; Z98.51 Tubal ligation status; Z88.8 Allergy status to other drugs, medicaments and biological substances; Z85.828 Personal history of other malignant neoplasm of skin; Z81.8 Family history of other mental and behavioral disorders; Z83.3 Family history of diabetes mellitus; Z82.49 Family history of ischemic heart disease and other diseases of the circulatory system
CPT/HCPCS: 36415; 71046; 80053; 80061; 82550; 82553; 83036; 83735; 84484; 85025; 85379; 85610; 85652; 85730; 93005; 93306; 96374; 99285

== ENCOUNTER → 2018-06-11 | Outpatient (CLI) | payer OTHER ==
--- NOTE | 2018-06-14 08:41 | MM ---
Reason for exam: additional evaluation requested from prior study. Last mammogram was performed 1 year and 8 months ago. History: Patient is postmenopausal. Benign MG stereo VAD BX LT of the left breast, November 03, 2016. Took hormonal contraceptives for 2 years. Took estrogen for 2 months. Physical Findings: Nurse did not find any significant physical abnormalities on exam. MG Diagnostic Mammo w CAD NIESHA Bilateral CC and MLO view(s) were taken. Prior study comparison: October 20, 2016, left breast MG work up mamm w CAD LT. October 16, 2016, bilateral MG screening mammo w CAD. The breast tissue is heterogeneously dense. This may lower the sensitivity of mammography. There are benign appearing round calcifications in the left breast. Previous mammotome biopsy in the left breast. There is no discrete abnormality. These results were verbally communicated with the patient and result sheet given to the patient on 06/11/18. ASSESSMENT: Benign, BI-RAD 2 RECOMMENDATION: Routine screening mammogram of both breasts in 1 year.
== END ==
LOC: RADMAMWWP 15:33
PROVIDERS: ATTEND Internal Medicine
DX: R92.8 Other abnormal and inconclusive findings on diagnostic imaging of breast (principal)
CPT/HCPCS: 77066

== ENCOUNTER 2018-10-18 11:59 | Emergency (ER) | payer OTHER ==
[2018-10-18 12:10] VITALS: BP 138/83; PULSE 84; RESP 18; TEMP 98.5
--- NOTE | 2018-10-18 12:43 | ED ---
General Adult HPI - General Chief complaint: Fall Stated complaint: fall, wants MRI Time Seen by Provider: 10/18/18 12:14 Source: patient, RN notes reviewed Mode of arrival: ambulatory Limitations: no limitations - History of Present Illness Initial comments: Patient's a 62-year-old female presenting to the emergency room today with a chief complaint of a head injury that occurred 2 days ago. She does admit that she was in her house when she slipped and went down some steps. She states she did lose consciousness. She states that when she woke up she went to the hospital. She states she did have imaging obtained. She states that he was negative and she was told to follow up over the next 2 days. She states that she couldn't get into her family doctor's office today is closed. she states she decided to come here to the emergency room. She states that she's had minimal headache over the last 2 days that she states is improving. She denies any other complaints with this headache. Patient denies any recent fever, chills , shortness of breath, chest pain, back pain, abdominal pain, nausea or vomiting , numbness or tingling, visual changes, or any other complaints. - Related Data Home Medications Medication Instructions Recorded Confirmed Gabapentin [Neurontin] 300 mg PO HS 05/06/18 05/06/18 Venlafaxine HCl [Effexor XR] 75 mg PO HS 05/06/18 05/06/18 Previous Rx's Medication Instructions Recorded Colchicine [Colcrys] 0.6 mg PO BID #60 each 05/08/18 Ibuprofen 600 mg PO TID #90 tablet 05/08/18 Pantoprazole [Protonix] 40 mg PO DAILY #30 tablet. 05/08/18 Allergies Allergy/AdvReac Type Severity Reaction Status Date / Time Rpwvptx-Mro-Pxx Reductase Allergy Swelling Verified 10/18/18 12:10 Inhibitor Review of Systems ROS Statement: Those systems with pertinent positive or pertinent negative responses have been documented in the HPI. ROS Other: All systems not noted in ROS Statement are negative. Past Medical History Past Medical History: Cancer Additional Past Medical History / Comment(s): Hot flashes, Vitamin D deficiency "pre cancerous cells/cervix pt stated they burned them out, skin cancer(removed) History of Any Multi-Drug Resistant Organisms: None Reported Past Surgical History: Appendectomy, Cholecystectomy, Tubal Ligation Additional Past Surgical History / Comment(s): "pre cancerous cells in cervix- pt stated they burned them out" Past Anesthesia/Blood Transfusion Reactions: Motion Sickness, Postoperative Nausea & Vomiting (PONV) Past Psychological History: No Psychological Hx Reported Smoking Status: Never smoker - Past Family History Mother Family Medical History: Diabetes Mellitus Additional Family Medical History / Comment(s): obesity, depression Father History Unknown: Yes Additional Family Medical History / Comment(s): "i did'nt know my dad" cousin Additional Family Medical History / Comment(s): LA General Exam - General Exam Comments Initial Comments: General: The patient is awake and alert, in no distress, and does not appear acutely ill. Eye: Pupils are equal, round and reactive to light, extra-ocular movements are intact. No nystagmus. There is normal conjunctiva bilaterally. No signs of icterus. Ears, nose, mouth and throat: There are moist mucous membranes and no oral lesions. Neck: The neck is supple, there is no tenderness or JVD. Cardiovascular: There is a regular rate and rhythm. No murmur, rub or gallop is appreciated. Respiratory: Lungs are clear to auscultation, respirations are non-labored, breath sounds are equal. No wheezes, stridor, rales, or rhonchi. Musculoskeletal: Normal ROM, no tenderness. Strength 5/5. Sensation intact. No tenderness to the cervical, thoracic or lumbar spine. No step-off or deformity. Neurological: A&O x 3. CN II-XII intact, There are no obvious motor or sensory deficits. Coordination appears grossly intact. Speech is normal. Normal gait. Skin: Skin is warm and dry and no rashes or lesions are noted. Psychiatric: Cooperative, appropriate mood & affect, normal judgment. Limitations: no limitations Course Vital Signs 10/18/18 12:06 Temperature 98.5 F Pulse Rate 84 Respiratory 18 Rate Blood Pressure 138/83 O2 Sat by Pulse 97 Oximetry Medical Decision Making - Medical Decision Making 62-year-old female presenting to the emergency room today with chief complaint of fall occurred 2 days ago. Patient did have copy of her CT scan of her head and neck from 2 days ago which was negative no acute abnormality. Was discussed with patient about sinus symptoms of concussion in detail. Patient states minimal headache today and has improved over the last 2 days. She denies any other complaints or symptoms. Patient has normal neurological exam here in the emergency room. Patient's vitals are stable. Doing well. Options of CT were discussed with patient. Risks versus benefit were discussed. At this time patient feels comfortable being discharged home to follow-up the family doctor over the next 2 days. She is advised that she should return to emergency room if any symptoms increase or worsen. She states understanding and is in agreement. Disposition Clinical Impression: Concussion Disposition: HOME SELF-CARE Condition: Good Instructions (If sedation given, give patient instructions): Concussion (ED) Additional Instructions: Please follow-up with family doctor in the next 2 days. Please return to emergency room if the symptoms increase or worsen or for any other concerns. Is patient prescribed a controlled substance at d/c from ED?: No Referrals: Celena Poole DO [Primary Care Provider] - 1-2 days Time of Disposition: 12:41
== END 2018-10-18 12:52 | disposition home or self-care (01) ==
LOC: EC 11:59
DX: S06.0X0A Concussion without loss of consciousness, initial encounter (principal); Z85.828 Personal history of other malignant neoplasm of skin; Z79.899 Other long term (current) drug therapy; Z88.8 Allergy status to other drugs, medicaments and biological substances; W10.9XXA Fall (on) (from) unspecified stairs and steps, initial encounter; Y92.009 Unspecified place in unspecified non-institutional (private) residence as the place of occurrence of the external cause
CPT/HCPCS: 99283

== ENCOUNTER → 2018-11-26 | Outpatient (CLI) | payer OTHER ==
--- NOTE | 2018-11-26 17:16 | MR ---
EXAMINATION TYPE: MR brain wo/w con DATE OF EXAM: 11/26/2018 COMPARISON: None HISTORY: head injury, numbness in feet, pain in neck CONTRAST: Performed utilizing 8.5 mL intravenous Gadavist gadolinium contrast. TECHNIQUE: Multiplanar, multiecho imaging on a 3.0 Linda magnet is performed through the brain. Stud y is performed within 24 hours of arrival to the hospital. The craniovertebral junction is normal. The pituitary is normal. Diffusion-weighted imaging is performed. No abnormal hyperintensity is present to suggest an acute i ntracranial infarct or acute ischemic change. Signal through the brain is normal. On T2-weighted sequences there is some ill-defined hypodensity to the left of the basilar artery with in the cerebellar pontine angle pontine space. This region appears hyperintense on T2 and FLAIR image s this has mixed signal on the axial T2 star trauma imaging. No enhancement is evident. Consider the possibility of hemorrhage. Additional evaluation with CT is recommended. Preliminary Report was called and case discussed with the referring physician Dr. Poole by Dr. Adeline lara by telephone [phone] is unavailable for direct comparison at this time. Report is emilia t of petechial hemorrhages along the parietal vertex on a [address] No comment of prepons hem orrhage. The images were able to be viewed from the computer disc images are reviewed and compared to the curr ent MRI. Suspicious signal abnormality at the vertex to correspond to the previous suspected subarach noid hemorrhages is not evident. Ventricles and sulci are appropriate for the patient age. There is an air-fluid level within the left maxillary sinus. Correlate for acute left maxillary sinus . Mild mucosal thickenings with ethmoid air cells. Mastoid air cells are clear. IMPRESSIONS: 1. Abnormal signal within the CSF space adjacent to the basilar artery and within the anterior left c erebellar pontine angle. Consider subacute to old hemorrhage. CT could be performed for additional ev aluation. 2. No suspicious corresponding abnormality at the vertex for prior suspected subarachnoid hemorrhage. 3. Correlate for acute left maxillary sinusitis. 4. Pre and postcontrast MRI brain otherwise appears unremarkable.
== END | disposition home or self-care (01) ==
LOC: RADMRIMAIN 07:30
PROVIDERS: ATTEND Internal Medicine
DX: R93.0 Abnormal findings on diagnostic imaging of skull and head, not elsewhere classified (principal); S06.0X0S Concussion without loss of consciousness, sequela
CPT/HCPCS: 70553; A9585

== ENCOUNTER → 2019-05-26 | Outpatient (CLI) | payer OTHER ==
--- NOTE | 2019-05-26 12:17 | ECHOS ---
STRESS ECHOCARDIOGRAM DATE OF SERVICE: 05/26/2019 INDICATIONS: Shortness of breath. MEDICATIONS: BASELINE HEART RATE: 75 BASELINE BLOOD PRESSURE: 100/56 MAXIMUM HEART RATE: 145 MAXIMUM BLOOD PRESSURE: 193/108 85% MPHR: 135 100% MPHR: 159 METS: 11 MAXIMUM STAGE REACHED: IV TOTAL EXERCISE TIME: 9 minutes and 50 seconds CLINICAL INFORMATION: Baseline EKG shows sinus rhythm, normal axis, normal intervals. Patient exercised on Luis Alberto protocol for a total of 9 minutes and 50 seconds achieving 11 METs, 92% of predicted maximal heart rate without chest pain or diagnostic ST-segment depression. Baseline echo shows normal left ventricular size, wall motion and systolic function. Postexercise, there is normal hyperdynamic response of all segments of myocardium noted. CONCLUSIONS: 1. Good exercise tolerance. 2. Negative stress test by EKG criteria. 3. Negative stress echo. TANI / KELLY: [id number] /
== END | disposition home or self-care (01) ==
LOC: RADNMMAIN 09:57
PROVIDERS: ATTEND Internal Medicine
DX: R06.00 Dyspnea, unspecified (principal)
CPT/HCPCS: 93351

== ENCOUNTER → 2019-06-16 | Outpatient (CLI) | payer OTHER ==
--- NOTE | 2019-06-20 10:28 | MM ---
Reason for exam: screening (asymptomatic). Last mammogram was performed 1 year ago. History: Patient is postmenopausal, history of endometrial cancer, and history of other cancer. Benign MG stereo VAD BX LT of the left breast, November 03, 2016. Took hormonal contraceptives for 2 years. Took estrogen for 2 months. Physical Findings: A clinical breast exam by your physician is recommended on an annual basis and results should be correlated with mammographic findings. MG 3D Screening Mammo W/Cad Bilateral CC and MLO view(s) were taken. Prior study comparison: June 11, 2018, bilateral MG diagnostic mammo w CAD NIESHA. October 20, 2016, left breast MG work up mamm w CAD LT. The breast tissue is heterogeneously dense. This may lower the sensitivity of mammography. No significant changes when compared with prior studies. ASSESSMENT: Benign, BI-RAD 2 RECOMMENDATION: Routine screening mammogram of both breasts in 1 year.
== END | disposition home or self-care (01) ==
LOC: RADMAMWWP 16:45
PROVIDERS: ATTEND Internal Medicine
DX: Z12.31 Encounter for screening mammogram for malignant neoplasm of breast (principal)
CPT/HCPCS: 77063; 77067

== ENCOUNTER → 2021-01-25 | Outpatient (CLI) | payer OTHER ==
--- NOTE | 2021-01-28 11:16 | MM ---
Reason for exam: screening (asymptomatic). Last mammogram was performed 1 year and 7 months ago. History: Patient is postmenopausal, history of endometrial cancer, and history of other cancer. Benign MG stereo VAD BX LT of the left breast, November 03, 2016. Took hormonal contraceptives for 2 years. Took estrogen for 2 months. Physical Findings: A clinical breast exam by your physician is recommended on an annual basis and results should be correlated with mammographic findings. MG Screening Mammo w CAD Bilateral CC and MLO view(s) were taken. Prior study comparison: June 16, 2019, bilateral MG 3d screening mammo w/cad. June 11, 2018, bilateral MG diagnostic mammo w CAD NIESHA. The breast tissue is heterogeneously dense. This may lower the sensitivity of mammography. There are benign appearing round calcifications in the left breast. Previous mammotome biopsy in the left breast. There is no discrete abnormality. ASSESSMENT: Benign, BI-RAD 2 RECOMMENDATION: Routine screening mammogram of both breasts in 1 year.
== END | disposition home or self-care (01) ==
LOC: RADMAMWWP 15:54
PROVIDERS: ATTEND Family Medicine
DX: Z12.31 Encounter for screening mammogram for malignant neoplasm of breast (principal); Z78.0 Asymptomatic menopausal state
CPT/HCPCS: 77067

== ENCOUNTER → 2021-10-22 | Outpatient (CLI) | payer OTHER ==
--- NOTE | 2021-10-23 12:13 | XR ---
Right foot HISTORY: Right foot pain 3 views the right foot Bone mineralization, joint spaces and alignment are maintained. No fracture or dislocation. Mild soft tissue swelling noted at the first metatarsophalangeal joint. IMPRESSION: No abnormality evident to account for patient's symptoms, foot MRI may be of benefit.
== END | disposition home or self-care (01) ==
LOC: RADXRYALE 16:45
PROVIDERS: ATTEND Physician Assistant Medical
DX: M79.671 Pain in right foot (principal)

== ENCOUNTER → 2022-03-19 | Outpatient (CLI) | payer MEDICAID ==
--- NOTE | 2022-03-20 17:34 | MM ---
Reason for Exam: Screening (asymptomatic). Last mammogram was performed 1 year(s) and 2 month(s) ago. Patient History: Menarche at age 14. First Full-Term at age 26. Postmenopausal. Other cancer. Endometrial cancer. Estrogen for 2 months. Patient used Hormonal Contraceptives for 2 years. 11/03/2016, Benign Core Biopsy on the left side. Risk Values: Jennifer 5 year model risk: 1.7%. NCI Lifetime model risk: 6.9%. Prior Study Comparison: 06/11/2018 Bilateral Diagnostic Mammogram, [facility]. 06/16/2019 Bilateral Screening Mammogram, [facility]. 01/25/2021 Bilateral Screening Mammogram, [facility]. Tissue Density: The breast tissue is heterogeneously dense. This may lower the sensitivity of mammography. Findings: Analyzed By CAD. Benign calcifications within the left breast. A core markers within the left breast. No significant interval change is evident. No suspicious groups of microcalcifications, spiculated or lobular masses, architectural distortion or other secondary signs of malignancy are mammographically apparent. Overall Assessment: Benign, BI-RAD 2 Management: Screening Mammogram of both breasts in 1 year. A negative mammogram report should not preclude additional follow up of suspicious palpable abnormalities. Patient should continue monthly self breast exam. A clinical breast exam by your physician is recommended on an annual basis and results should be correlated with mammographic findings. Electronically signed and approved by: Surjit Do D.O. Radiologis
== END | disposition home or self-care (01) ==
LOC: RADMAMWWP 16:45
PROVIDERS: ATTEND Family Medicine
DX: Z12.39 Encounter for other screening for malignant neoplasm of breast (principal)
CPT/HCPCS: 77067

== ENCOUNTER → 2022-12-12 | Day surgery (SDC) | payer MEDICAID, MEDICARE ==
[~2022-12-12] MED LIST changes: -ALPRAZolam 0.25 MG TAB ONE; -BACITRACIN OINT 1 EACH PACKET TOPICAL ONE; +LACTATED RINGERS 1,000 ML IV SCH; +LIDOCAINE 1% (10MG/ML) FOR IV START INTRADERMA PRN; -LIDOCAINE 1% INJ 10MG/ML (20 ML MDV) ONE; +ONDANSETRON 4 MG/2 ML VIAL IVP PRN; +PROPOFOL 10 MG/ML 20 ML VIAL IV ONE; -SODIUM BICARB 4% 5 ML VIAL (0.48 MEQ/ML) ONE
[2022-12-12 07:11] VITALS: TEMP 97.5
--- NOTE | 2022-12-12 08:19 | P.PCN ---
Date of Procedure: 12/12/22 Procedure(s) Performed: BRIEF HISTORY: Patient is a 67-year-old pleasant white female scheduled for an elective colonoscopy as a part of screening for colorectal neoplasia. PROCEDURE PERFORMED: Colonoscopy. PREOPERATIVE DIAGNOSIS: Screening for colon cancer. IV sedation per Anesthesia. PROCEDURE: After informed consent was obtained, the patient, was brought into the endoscopy unit. IV sedation was administered by Anesthesia under continuous monitoring. Digital rectal examination was normal. Initially the Olympus CF-160 flexible video colonoscope was then inserted in the rectum, gradually advanced into the cecum without any difficulty. Careful examination was performed as the scope was gradually being withdrawn. Ileocecal valve and the appendiceal orifice were visualized and appeared normal. Prep was excellent. Mucosa of the cecum, ascending colon, transverse colon, descending colon, sigmoid colon, and rectum appeared normal. Scattered sigmoid diverticulosis. Retroflexion was performed in the rectum and no lesions were seen. The patient tolerated the procedure well. IMPRESSION: Normal-appearing colon from rectum to cecum with no evidence of colorectal neoplasia . Scattered sigmoid diverticulosis. RECOMMENDATIONS: Findings of this examination were discussed with the patient as well as his family.. She was advised to have a repeat screening colonoscopy in 10 years.
[2022-12-12 08:44] VITALS: BP 145/82; PULSE 80; RESP 15
== END ==
LOC: ORWHC2ENDO 06:33
PROVIDERS: ATTEND Internal Medicine Gastroenterology
DX: Z12.11 Encounter for screening for malignant neoplasm of colon (principal); K57.30 Diverticulosis of large intestine without perforation or abscess without bleeding; K21.9 Gastro-esophageal reflux disease without esophagitis; Z90.49 Acquired absence of other specified parts of digestive tract; Z98.51 Tubal ligation status; Z79.899 Other long term (current) drug therapy; Z88.8 Allergy status to other drugs, medicaments and biological substances
CPT/HCPCS: J2704; G0121

== ENCOUNTER → 2023-04-14 | Outpatient (CLI) | payer MEDICARE ==
--- NOTE | 2023-04-15 18:18 | MM ---
Reason for Exam: Screening (asymptomatic). Last mammogram was performed 1 year(s) and 1 month(s) ago. Patient History: Menarche at age 14. First Full-Term at age 26. Postmenopausal. Estrogen for 2 months. Patient used Hormonal Contraceptives for 2 years. 11/03/2016, Benign Core Biopsy on the left side. Risk Values: Jennifer 5 year model risk: 1.8%. NCI Lifetime model risk: 6.6%. Prior Study Comparison: 06/16/2019 Bilateral Screening Mammogram, [facility]. 01/25/2021 Bilateral Screening Mammogram, [facility]. 03/19/2022 Bilateral MG screening mammo w CAD, [facility]. Tissue Density: The breast tissue is heterogeneously dense. This may lower the sensitivity of mammography. Findings: Analyzed By CAD. Regional punctate calcifications superiorly on the left. Microclip from prior biopsy on the left. There is no suspicious group of microcalcifications or new suspicious mass in either breast. Overall Assessment: Benign, BI-RAD 2 Management: Screening Mammogram of both breasts in 1 year. . Patient should continue monthly self-breast exams. A clinical breast exam by your physician is recommended on an annual basis. This exam should not preclude additional follow-up of suspicious palpable abnormalities. Note on Jennifer scores and lifetime risk: 1. A Jennifer score greater than 3% is considered moderate risk. If this is the case, consider specialist referral to assess eligibility for a risk reducing agent. 2. If overall lifetime risk for the development of breast cancer is 20% or higher, the patient may qualify for future screening with alternating mammogram and breast MRI. Electronically signed and approved by: Nadia Torrez M.D. Radiologist
== END | disposition home or self-care (01) ==
LOC: RADMAMWWP 11:29
PROVIDERS: ATTEND Family Medicine
DX: Z12.31 Encounter for screening mammogram for malignant neoplasm of breast (principal); Z78.0 Asymptomatic menopausal state
CPT/HCPCS: 77063; 77067

== ENCOUNTER → 2023-11-07 | Outpatient (CLI) | payer MEDICARE ==
--- NOTE | 2023-11-07 10:45 | MR ---
MRI right foot. HISTORY: Metatarsalalgia. COMPARISON: None. TECHNIQUE: Multiecho multiplanar images of the right foot were obtained without contrast. FINDINGS: The osseous structures are intact and there is no bone contusion or fracture. There is mild degenerat cecil change of the first MTP joint. There is diffuse abnormal signal intensity in the second and third web spaces and to a lesser extent in the fourth webspace. The coronal images demonstrate minimal abnormal soft tissue signal intensity in the second and third web spaces. The findings represent either small Gross's neuromas with signif icant intermetatarsal bursitis or intermetatarsal bursitis secondary to rheumatoid arthritis. Clinica l correlation is recommended. Confirm the presence of seroma in this case, a postcontrast MRI of the foot should be obtained. IMPRESSION: Abnormality of the web spaces as described above. See above for recommendations.
== END | disposition home or self-care (01) ==
LOC: RADMRIMAIN 08:52
PROVIDERS: ATTEND Podiatrist Foot & Ankle Surgery
DX: M19.071 Primary osteoarthritis, right ankle and foot (principal); M89.8X7 Other specified disorders of bone, ankle and foot; M77.51 Other enthesopathy of right foot and ankle; M77.41 Metatarsalgia, right foot; S99.921S Unspecified injury of right foot, sequela; X58.XXXS Exposure to other specified factors, sequela

== ENCOUNTER → 2024-07-01 | Outpatient (CLI) | payer MEDICARE ==
--- NOTE | 2024-07-04 14:31 | MM ---
Reason for Exam: Screening (asymptomatic). Last mammogram was performed 1 year(s) and 3 month(s) ago. Patient History: Menarche at age 14. First Full-Term at age 26. Postmenopausal. Estrogen for 2 months. Patient used Hormonal Contraceptives for 2 years. 11/03/2016, Benign Core Biopsy on the left side. Risk Values: Jennifer 5 year model risk: 1.8%. NCI Lifetime model risk: 6.4%. Prior Study Comparison: 01/25/2021 Bilateral Screening Mammogram, [facility]. 03/19/2022 Bilateral MG screening mammo w CAD, [facility]. 04/14/2023 Bilateral MG 3D screening mammo w/cad, [facility]. Tissue Density: The breasts are heterogeneously dense, which may obscure small masses. Findings: Analyzed By CAD. There is no suspicious group of microcalcifications or new suspicious mass in either breast. Overall Assessment: Benign, BI-RAD 2 Management: Screening Mammogram of both breasts in 1 year. . Patient should continue monthly self-breast exams. A clinical breast exam by your physician is recommended on an annual basis. This exam should not preclude additional follow-up of suspicious palpable abnormalities. Note on Jennifer scores and lifetime risk: 1. A Jennifer score greater than 3% is considered moderate risk. If this is the case, consider specialist referral to assess eligibility for a risk reducing agent. 2. If overall lifetime risk for the development of breast cancer is 20% or higher, the patient may qualify for future screening with alternating mammogram and breast MRI. [facility], , 07/04/2024 2:28 PM. Electronically signed and approved by: Juice Gomez M.D. Radiologis
== END | disposition home or self-care (01) ==
LOC: RADMAMWWP 14:26
PROVIDERS: ATTEND Family Medicine
DX: Z12.31 Encounter for screening mammogram for malignant neoplasm of breast
CPT/HCPCS: 77063; 77067